=== PATIENT | male | born 1940 | race Caucasian/White ===

== ENCOUNTER 2020-01-03 09:03 | Day surgery (SDC) | payer MEDICARE ==
[~2020-01-03] VITALS: Ht 180.3 cm; Wt 101.4 kg
[2020-01-03] VITALS (11 sets, daily range): BP systolic 91–140; BP diastolic 44–76
[~2020-01-03 09:03] MED LIST: ASPI81TA52 PO; EXEN10PE3 SQ; FERR324T4 PO; FOLI1TAB16 PO; LISI40TA4 PO; METF-950 PO; METO-384 PO; OMEG1CAP PO; POTA20TA10 PO; ROSU20TA2 PO; TEST2.5G5 TD; VITC500T PO; [UNRECOGNIZED DRUG - CODE] PO
[2020-01-03] MEDS ORDERED: diphenhydrAMINE 25mg capsule PO PRN (09:30)
[2020-01-03] MEDS ORDERED: normal saline 1,000 ML IV SCH (09:30)
[2020-01-03] MEDS ORDERED: DULA1.5P SQ (10:03)
[2020-01-03] MEDS ORDERED: SPIR25TA PO (10:03)
[2020-01-03] MEDS ORDERED: APIX5TAB3 PO (10:03)
[2020-01-03] MEDS ORDERED: SITA100T15 PO (10:03)
[2020-01-03] MEDS ORDERED: ZOLP10TA PO (10:03)
[2020-01-03] MEDS ORDERED: MECO10005 (10:03)
[2020-01-03] MEDS ORDERED: EMPA25TA PO (10:03)
[2020-01-03 10:11] LABS: BASOPHILS # (AUTO) 0.1 X10'3 (0-0.2); BASOPHILS % (AUTO) 1.1 % (0-1); EOSINOPHILS # (AUTO) 0.1 X10'3 (0-0.9); EOSINOPHILS % (AUTO) 1.4 % (0-6); HEMATOCRIT 40.8 % (42.0-52.0); HEMOGLOBIN 12.8 g/dl (14.0-17.9); LYMPHOCYTES # (AUTO) 0.7 X10'3 (1.1-4.8); LYMPHOCYTES % (AUTO) 9.4 % (21-51); MEAN CORPUSCULAR HEMOGLOBIN 25.4 PG (27.0-31.0); MEAN CORPUSCULAR HGB CONC 31.4 g/dL (33.0-36.5); MEAN CORPUSCULAR VOLUME 80.9 FL (78-98); MONOCYTES # (AUTO) 0.7 X10'3 (0-0.9); MONOCYTES % (AUTO) 9.1 % (2-12); NEUTROPHILS # (AUTO) 6.2 X10'3 (1.8-7.7); PLATELET COUNT 202 X10'3 (140-440); RED BLOOD COUNT 5.04 X10'6 (4.70-6.10); RED CELL DISTRIBUTION WIDTH 20.6 % (11.5-14.5); WHITE BLOOD COUNT 7.8 X10'3 (4.5-11.0)
[2020-01-03 10:25] LABS: ALBUMIN 3.8 G/DL (3.4-5.0); ANION GAP 13 (8-16); BLOOD UREA NITROGEN 40 MG/DL (7-18); BUN/CREATININE RATIO 24.5 (5.4-32.0); CALCIUM 9.1 MG/DL (8.5-10.1); CHLORIDE 104 MMOL/L (99-107); CREATININE 1.63 MG/DL (0.60-1.10); GLUCOSE 172 MG/DL (70-104); POTASSIUM 4.7 MMOL/L (3.5-5.1); SODIUM 139 MMOL/L (135-145); TOTAL CARBON DIOXIDE 21.8 MMOL/L (24-32); eGFR 41 ML/MIN
[2020-01-03 10:32] LABS: PLATELET ESTIMATE NORMAL
[2020-01-03 10:33] LABS: ANISOCYTOSIS 3+; ELLIPTOCYTES 2+; SCHISTOCYTES FEW
[2020-01-03] MEDS ORDERED: heparin 1,000unit/ml 10ml vial 10 ML ONE ×2 (11:33→13:07)
[2020-01-03] MEDS ORDERED: LIDOcaine 1% (10mg/ml)w/preservative injection 20ml MDV ONE ×2 (11:33→13:06)
[2020-01-03] MEDS ORDERED: iohexol 350MG/ML 100ml bottle IV ONE ×2 (11:33→12:32)
[2020-01-03] MEDS ORDERED: midazolam 2 mg/2 ml injection ONE ×2 (11:33→13:14)
[2020-01-03] MEDS ORDERED: iohexol 350 MG/ML 50ML vial IV ONE ×3 (11:33→13:15)
[2020-01-03] MEDS ORDERED: fentaNYL/PF 50MCG/1 ML 2ML syringe ONE (11:33)
[2020-01-03] MEDS ORDERED: heparin 1,000 UNITS/NS 500ml 500 ML ONE (11:36)
[2020-01-03] MEDS ORDERED: nitroGLYCERIN-Tridil 50MG/D5W 250 ML IV ONE (13:05)
[2020-01-03] MEDS ORDERED: verapamil 2.5 mg/ml inj IV ONE (13:05)
--- NOTE | 2020-01-03 15:55 | NUR ---
Pt returned from [facility] labor delivery w/out PIV-inadvertently D/C'd during procedure-initiated 18 G X1 attempt to rt forearm Addendum: 01/03/20 at 1556 by Abby Florian RN Amended: Links added.
[2020-01-06] MEDS ORDERED: METO-411 PO (14:41)
[2020-01-06] MEDS ORDERED: FURO40TA4 PO (14:41)
[2020-01-06] MEDS ORDERED: ICOS1CAP PO (14:41)
== END 2020-01-03 19:04 | disposition home or self-care (01) ==
LOC: SSTAY O 09:03
PROVIDERS: ATTEND Internal Medicine Cardiovascular Disease
DX: R06.09 Other forms of dyspnea (principal); I25.10 Atherosclerotic heart disease of native coronary artery without angina pectoris; I25.82 Chronic total occlusion of coronary artery; E11.22 Type 2 diabetes mellitus with diabetic chronic kidney disease; I13.0 Hypertensive heart and chronic kidney disease with heart failure and stage 1 through stage 4 chronic kidney disease, or unspecified chronic kidney disease; I50.9 Heart failure, unspecified; N18.9 Chronic kidney disease, unspecified; G47.30 Sleep apnea, unspecified; E78.5 Hyperlipidemia, unspecified; G45.8 Other transient cerebral ischemic attacks and related syndromes; Z95.2 Presence of prosthetic heart valve; Z79.899 Other long term (current) drug therapy; Z95.1 Presence of aortocoronary bypass graft; Z87.891 Personal history of nicotine dependence
CPT/HCPCS: 36415; 80048; 82948; 83735; 85025; 85610; 93005; 93461; 93567; 99152; 99153; C1760; C1769; C1894; J1644; J2001; J2250; J3010; J7030; Q0163; Q9967; 36215; 85008; 93457; A6258; C1751; J3490

== ENCOUNTER 2022-08-06 10:04 | Emergency (ER) | payer MEDICARE ==
[~2022-08-06] VITALS: Ht 180.3 cm; Wt 98.4 kg
[~2022-08-06 10:04] MED LIST changes: +APIX5TAB3 PO; -ASPI81TA52 PO; +DULA1.5P SQ; +EMPA25TA PO; -EXEN10PE3 SQ; -FERR324T4 PO; -FOLI1TAB16 PO; +FURO40TA4 PO; +ICOS1CAP PO; -LISI40TA4 PO; -METF-950 PO; +METO-411 PO; -OMEG1CAP PO; -POTA20TA10 PO; +SITA100T15 PO; +SPIR25TA PO; -TEST2.5G5 TD; +ZOLP10TA PO; -[UNRECOGNIZED DRUG - CODE] PO
[2022-08-06 10:14] VITALS: BP 171/71
[2022-08-06] MEDS ORDERED: sulfamethoxazole/trimethoprim DS (800/160mg) tablet PO ONE (10:50)
[2022-08-06] MEDS ORDERED: amox tr/potassium clavulanate 875/125mg TAB PO ONE (10:50)
[2022-08-06] MEDS ORDERED: SULF1TAB49 PO (10:57)
[2022-08-06] MEDS ORDERED: AMOX-117 PO (10:57)
[2022-08-06 11:23] LABS: BASOPHILS % (AUTO) 0.5 % (0-1); EOSINOPHILS # (AUTO) 0.1 X10'3 (0-0.9); EOSINOPHILS % (AUTO) 0.9 % (0-6); HEMATOCRIT 46.4 % (42.0-52.0); HEMOGLOBIN 14.6 g/dl (14.0-17.9); LYMPHOCYTES # (AUTO) 0.6 X10'3 (1.1-4.8); LYMPHOCYTES % (AUTO) 7.1 % (21-51); MEAN CORPUSCULAR HEMOGLOBIN 26.7 PG (27.0-31.0); MEAN CORPUSCULAR HGB CONC 31.5 g/dL (33.0-36.5); MEAN CORPUSCULAR VOLUME 84.7 FL (78-98); MEAN PLATELET VOLUME 8.6 FL (7.4-10.4); MONOCYTES # (AUTO) 0.6 X10'3 (0-0.9); MONOCYTES % (AUTO) 7.9 % (2-12); NEUTROPHILS # (AUTO) 6.7 X10'3 (1.8-7.7); NEUTROPHILS % (AUTO) 83.6 % (42-75); PLATELET COUNT 151 X10'3 (140-440); RED BLOOD COUNT 5.48 X10'6 (4.70-6.10); RED CELL DISTRIBUTION WIDTH 23.8 % (11.5-14.5); WHITE BLOOD COUNT 8.1 X10'3 (4.5-11.0)
[2022-08-06 11:40] LABS: ALANINE AMINOTRANSFERASE 17 U/L (12-78); ALBUMIN 3.8 G/DL (3.4-5.0); ALKALINE PHOSPHATASE 113 IU/L (46-116); ANION GAP 8 (8-16); ASPARTATE AMINO TRANSFERASE 21 U/L (10-37); BILIRUBIN,TOTAL 0.6 MG/DL (0.1-1.0); BLOOD UREA NITROGEN 62 MG/DL (7-18); BUN/CREATININE RATIO 26.5 (10.0-20.0); CALCIUM 9.8 MG/DL (8.5-10.1); CHLORIDE 99 MMOL/L (99-107); CREATININE 2.34 MG/DL (0.60-1.10); GLUCOSE 300 MG/DL (70-104); POTASSIUM 4.6 MMOL/L (3.5-5.1); SODIUM 134 MMOL/L (135-145); TOTAL CARBON DIOXIDE 26.8 MMOL/L (24-32); TOTAL PROTEIN 7.5 G/DL (6.4-8.2); eGFR 27 ML/MIN
[2022-08-06 11:53] LABS: ANISOCYTOSIS 3+; PLATELET ESTIMATE NORMAL
[2022-08-06 11:54] LABS: BURR CELLS 1+; ELLIPTOCYTES 2+; SCHISTOCYTES FEW
[2022-08-06] MEDS ORDERED: AMOX250S62 PO (11:59)
[2022-08-06 12:09] LABS: HEMOGLOBIN A1C 10.1 % (4.5-6.2)
== END 2022-08-06 12:02 | disposition home or self-care (01) ==
LOC: ER 10:05
DX: E11.622 Type 2 diabetes mellitus with other skin ulcer (principal); Z79.899 Other long term (current) drug therapy
CPT/HCPCS: 36415; 80053; 82948; 83036; 85008; 85025; 99283